=== PATIENT | female | born 1965 | race American Indian/Alaskan Native ===

== ENCOUNTER 2018-09-29 09:16 | Outpatient (CLI) | payer OTHER ==
--- NOTE | 2018-09-29 15:17 | Mammography Report ---
BILATERAL DIGITAL SCREENING MAMMOGRAM : 09/29/18 09:16:00 CLINICAL: Baseline screening. FINDINGS: The breasts are heterogeneously dense, which may obscures small masses. Bilateral benign calcifications and benign scar. A left lower inner portion circumscribed asymmetry requires additional imaging.No suspicious architectural distortion or suspicious calcifications. IMPRESSION: Left asymmetry requiring further workup. BI-RADS CATEGORY: 0 -- Additional Imaging Evaluation Required RECOMMENDATION: Recall for left lateralmedial , spot compression CC and MLO views and left breast ultrasound if needed. ACR BI-RADS MAMMOGRAPHIC CODES: 0 = Needs additional imaging evaluation; 1 = Negative; 2 = Benign; 3 = Probably benign; 4 = Suspicious; 5 = Malignant; 6 = Known biopsy-proven malignancy COMMENT: 1. Dense breast tissue, i.e., adenosis, fibrocystic changes, etc., may obscure an underlying neoplasm. 2. Approximately 10% of cancers are not detected with mammography. 3. A negative mammography report should not delay biopsy if a clinically suspicious mass is present. COMMENT: Patient follow-up letters are generated via our [employer] application.
== END 2018-09-29 09:17 | disposition home or self-care (01) ==
LOC: SPVWC 09:16
PROVIDERS: ATTEND Family Medicine
DX: Z12.31 Encounter for screening mammogram for malignant neoplasm of breast (principal); I10 Essential (primary) hypertension
CPT/HCPCS: 77067

== ENCOUNTER 2019-08-20 12:39 | Outpatient (CLI) | payer OTHER ==
--- NOTE | 2019-08-20 14:58 | Mammography Report ---
LEFT DIGITAL DIAGNOSTIC MAMMOGRAM WITH CAD 08/20/2019 LEFT LIMITED BREAST ULTRASOUND INDICATION: 6 month f/u TECHNIQUE: Digital left mammographic imaging was performed. Limited ultrasound was performed. This e xamination was interpreted with the benefit of Computer-Aided Detection (CAD) analysis. COMPARISON: 10/24/2018 FINDINGS: Breast Density: There are scattered areas of fibroglandular density. MAMMOGRAPHIC FINDINGS: A low-density circumscribed slightly irregular lower inner mass measures appro ximately 1.3 cm maximum and is not significantly changed mammographically. No architectural distortio n or suspicious calcifications. ULTRASOUND FINDINGS: Targeted ultrasound evaluation was performed of the area of interest. Ultrasou nd of the left breast demonstrated a partially circumscribed irregular mass at 8:00 6 cm from the nip ple measuring 9 x 4 mm and the radial plane. It is not well-defined in the antiradial plane and appea rs to be more irregular than on the last exam. IMPRESSION: A slightly more irregular mass at 8:00 6 cm from the nipple. Note that on the last report it was incorrectly described in the impression to be at 9:00 5 cm from the nipple. Recommend ultraso und-guided needle biopsy to exclude malignancy. I discussed the findings and the recommendation for biopsy with the patient at the time of the exam. Follow up recommendation: Biopsy BI-RADS Category 4: Suspicious for Malignancy. A "normal" or negative report should not discourage follow up or biopsy of a clinically significant f inding. A written summary of these findings will be mailed to the patient. The patient will be entered into a mammography reporting system which will generate a reminder letter for the patient's next appointmen t at the appropriate interval. According to the [employer], yearly mammograms are recommended starting at age 40 and continuing as long as a woman is in good health. Breast MRI is recommended for women with an stefan roximately 20-25% or greater lifetime risk of breast cancer, including women with a strong family his tory of breast or ovarian cancer and women who have been treated for Hodgkin's disease. Signer Name: Eagle Oglesby MD Signed: 08/20/2019 2:54 PM Workstation Name: [id number]
== END 2019-08-20 12:40 | disposition home or self-care (01) ==
LOC: SPVWC 12:39
PROVIDERS: ATTEND Family Medicine
DX: N63.24 Unspecified lump in the left breast, lower inner quadrant (principal)